=== PATIENT | female | born 1995 | race Two or more races ===

== ENCOUNTER 2019-01-11 04:21 | Emergency (ER) | payer BC, OTHER ==
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
[2019-01-11] MEDS: Levonorgestrel 1.5 MG Tab PO ONE (05:45)
== END 2019-01-11 05:52 | disposition home or self-care (01) ==
LOC: LB.ED 04:21 → LB.NPLAB 04:21 → LB.ED 04:21 → EEVIPCON 04:21 → LB.NPLAB 05:52 → LB.ED 05:52 → EDSTATUS 07:56
DX: T74.21XA Adult sexual abuse, confirmed, initial encounter (principal); S50.11XA Contusion of right forearm, initial encounter; S60.511A Abrasion of right hand, initial encounter; Y07.9 Unspecified perpetrator of maltreatment and neglect
CPT/HCPCS: 99284; A9270-GY

== ENCOUNTER 2021-07-30 03:57 | Emergency (ER) | payer BC, MEDICAID ==
[2021-07-30] MEDS ORDERED: Ketorolac 60 MG/2 ML SDV IM ONE (04:25)
--- NOTE | 2021-07-30 04:29 | EDM.PDOC ---
ED HPI GENERAL MEDICAL PROBLEM - General Chief Complaint: Abdominal Pain Stated Complaint: Left Pelvic pain Time Seen by Provider: 07/30/21 04:15 Source of Information: Reports: Patient History Limitations: Reports: No Limitations - History of Present Illness INITIAL COMMENTS - FREE TEXT/NARRATIVE: This patient presents to the ED for evaluation of left pelvic pain. She states t he pain began suddenly and woke her from sleep about an hour prior to arrival. Her LMP was "2 weeks ago" and was her first period since delivering her son via 5 months ago. She denies fever, abdominal pain, nausea, vomiting, or diarrhea. 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 - Related Data Allergies Allergy/AdvReac Type Severity Reaction Status Date / Time No Known Allergies Allergy Verified 07/30/21 04:45 Home Meds: Home Meds NK [No Known Home Meds] 07/30/21 [History] Past Medical History - Past Health History Medical/Surgical History: Denies Medical/Surgical History Social & Family History - Caffeine Use Caffeine Use: Reports: Soda ED ROS GENERAL - Review of Systems Review Of Systems: See Below Constitutional: Reports: No Symptoms HEENT: Reports: No Symptoms Respiratory: Reports: No Symptoms Cardiovascular: Reports: No Symptoms Endocrine: Reports: No Symptoms GI/Abdominal: Denies: Abdominal Pain, Diarrhea, Decreased Appetite, Nausea, Vomiting : Reports: Irregular Menses, Pain. Denies: Discharge, Dysuria, Flank Pain, Frequency, Hematuria, Incontinence, Urgency, Urinary Retention Skin: Reports: No Symptoms Neurological: Reports: No Symptoms ED EXAM, RENAL/ - Physical Exam Exam: See Below Exam Limited By: No Limitations General Appearance: Alert, No Apparent Distress Eye Exam: Bilateral Eye: Normal Inspection, PERRL Ears: Normal External Exam Nose: Normal Inspection Head: Atraumatic, Normocephalic Neck: Normal Inspection, Supple, Full Range of Motion Respiratory/Chest: No Respiratory Distress, Lungs Clear, Normal Breath Sounds (Female) Exam: Normal External Exam, Normal Speculum Exam, Adnexal Tenderness (left). No: Cervical Discharge, Cervical Fluid, Cervix Motion Tenderness, Vaginal Bleeding, Vaginal Discharge, Vaginal Lesions Rectal (Female) Exam: Normal Exam Extremities: Normal Inspection Neurological: Alert, Oriented Skin Exam: Warm, Dry Course - Orders/Labs/Meds Orders: Active Orders 24 hr Category Date Time Status Pelvis Non OB Comp [US] Stat Exams 07/30/21 10:45 Ordered CHLAMYDIA/GC AMPLIFICATION Stat Lab 07/30/21 05:37 Received CULTURE URINE [RM] Stat Lab 07/30/21 04:24 Received Labs: Laboratory Tests 07/30/21 07/30/21 07/30/21 Range/Units 04:24 04:24 04:45 WBC 13.6 H (4.0-11.0) K/uL RBC 4.27 (3.80-5.80) M/uL Hgb 12.0 (11.5-16.5) g/dL Hct 36.3 L (37.0-47.0) % MCV 85 (76-96) fL MCH 28.1 (27.0-32.0) pg MCHC 33.1 (31.0-35.0) g/dL RDW 14.0 (11.0-16.0) % Plt Count 240 (150-500) K/uL MPV 10.2 H (6.0-10.0) fL Neut % (Auto) 80.7 H (45.0-70.0) % Lymph % (Auto) 12.6 L (20.0-40.0) % [place] % (Auto) 5.9 (3.0-10.0) % Eos % (Auto) 0.6 L (1.0-5.0) % Baso % (Auto) 0.2 (0.0-0.5) % Neut # (Auto) 10.99 H (2.00-7.50) K/uL Lymph # (Auto) 1.71 (1.50-4.00) K/uL [place] # (Auto) 0.80 (0.20-0.80) K/uL Eos # (Auto) 0.08 (0.04-0.40) K/uL Baso # (Auto) 0.03 (0.02-0.10) K/uL Sodium (136-145) mmol/L Potassium (3.5-5.1) mmol/L Chloride (98-107) mmol/L Carbon Dioxide (21.0-32.0) mmol/L Anion Gap (5.0-15.0) mmol/L BUN (8-26) mg/dL Creatinine (0.55-1.02) mg/dL Est Cr Clr Drug Dosing Estimated GFR (MDRD) (>60) MLS/MIN BUN/Creatinine Ratio (6-25) Glucose (74-100) mg/dL Calcium (8.5-10.1) mg/dL Urine Color Yellow Urine Appearance Clear (CLEAR) Urine pH 5.5 (5.0-8.0) Ur Specific [place] >= 1.030 (1.003-1.030) Urine Protein Negative (NEGATIVE) mg/dL Urine Glucose (UA) Negative (NEGATIVE) mg/dL Urine Ketones Negative (NEGATIVE) mg/dL Urine Occult Blood Small H (NEGATIVE) Urine Nitrite Negative (NEGATIVE) Urine Bilirubin Negative (NEGATIVE) Urine Urobilinogen 0.2 (0.2-1.0) E.U./dL Ur Leukocyte Esterase Small H (NEGATIVE) Urine RBC 0-5 H /HPF Urine WBC 5-10 H /HPF Ur Squamous Epith Cells Moderate /HPF Urine Bacteria Occasional /HPF Urine HCG, Qual Negative (NEGATIVE) 07/30/21 Range/Units 04:45 WBC (4.0-11.0) K/uL RBC (3.80-5.80) M/uL Hgb (11.5-16.5) g/dL Hct (37.0-47.0) % MCV (76-96) fL MCH (27.0-32.0) pg MCHC (31.0-35.0) g/dL RDW (11.0-16.0) % Plt Count (150-500) K/uL MPV (6.0-10.0) fL Neut % (Auto) (45.0-70.0) % Lymph % (Auto) (20.0-40.0) % [place] % (Auto) (3.0-10.0) % Eos % (Auto) (1.0-5.0) % Baso % (Auto) (0.0-0.5) % Neut # (Auto) (2.00-7.50) K/uL Lymph # (Auto) (1.50-4.00) K/uL [place] # (Auto) (0.20-0.80) K/uL Eos # (Auto) (0.04-0.40) K/uL Baso # (Auto) (0.02-0.10) K/uL Sodium 139 (136-145) mmol/L Potassium 4.1 (3.5-5.1) mmol/L Chloride 108 H (98-107) mmol/L Carbon Dioxide 27.9 (21.0-32.0) mmol/L Anion Gap 7.2 (5.0-15.0) mmol/L BUN 10 (8-26) mg/dL Creatinine 0.64 (0.55-1.02) mg/dL Est Cr Clr Drug Dosing TNP Estimated GFR (MDRD) > 60 (>60) MLS/MIN BUN/Creatinine Ratio 15.6 (6-25) Glucose 99 (74-100) mg/dL Calcium 8.6 (8.5-10.1) mg/dL Urine Color Urine Appearance (CLEAR) Urine pH (5.0-8.0) Ur Specific [place] (1.003-1.030) Urine Protein (NEGATIVE) mg/dL Urine Glucose (UA) (NEGATIVE) mg/dL Urine Ketones (NEGATIVE) mg/dL Urine Occult Blood (NEGATIVE) Urine Nitrite (NEGATIVE) Urine Bilirubin (NEGATIVE) Urine Urobilinogen (0.2-1.0) E.U./dL Ur Leukocyte Esterase (NEGATIVE) Urine RBC /HPF Urine WBC /HPF Ur Squamous Epith Cells /HPF Urine Bacteria /HPF Urine HCG, Qual (NEGATIVE) Meds: Medications Discontinued Medications Generic Name Dose Route Start Last Admin Trade Name Freq PRN Reason Stop Dose Admin Ketorolac Tromethamine 60 mg 07/30/21 04:25 07/30/21 04:25 Ketorolac 60 Mg/2 Ml Sdv IM 07/30/21 04:26 60 mg ONETIME ONE Administration - Re-Assessments/Exams Free Text/Narrative Re-Assessment/Exam: 07/30/21 10:43 This patient presents with pelvic pain. They look overall well. A broad differential diagnosis was considered including colitis, appendicitis, intestinal cramping, pyelonephritis, UTI, kidney stone, constipation, diverticulitis, volvulus, ileus, obstruction, (ectopic or intrauterine), ovarian cyst (enlarged or ruptured), ovarian torsion, PID, etc as possibilities. The workup in the ED did not identify a specific source of pain. Cultures were sent. Doubt PID or TOA given clear findings of cyst without signs of abscess. No other etiology for the patients pain is found at this point and my suspicion of an intraabdominal catastrophe or other worrisome etiology is very low. I will not therefore admit for serial exams and further workup. Patient is hemodynamically stable in the ED. She will be scheduled for an outpatient US later today. Return for fevers greater than 102, increasing pain, other new symptoms develop. Abdominal pain handout given. Questions were answered. Departure - Departure Time of Disposition: 05:30 Disposition: Home, Self-Care 01 Condition: Good Clinical Impression: Pelvic pain - Discharge Information *PRESCRIPTION DRUG MONITORING PROGRAM REVIEWED*: Not Applicable *COPY OF PRESCRIPTION DRUG MONITORING REPORT IN PATIENT DEBRA: Not Applicable Instructions: Pelvic Pain, Female, [id number] Forms: ED Department Discharge, ED Return to Work/School Form Additional Instructions: May continue to treat pain with Tylenol 1-2 tabs every 4-6 hours. Apply warm heat to abd for pain. Tomorrow you will be called by facility after scheduled for US of abd. Return to ER if increased pain - My Orders Last 24 Hours: My Active Orders 07/30/21 04:24 CULTURE URINE [RM] Stat 07/30/21 05:37 CHLAMYDIA/GC AMPLIFICATION Stat 07/30/21 10:45 Pelvis Non OB Comp [US] Stat - Assessment/Plan Last 24 Hours: My Active Orders 07/30/21 04:24 CULTURE URINE [RM] Stat 07/30/21 05:37 CHLAMYDIA/GC AMPLIFICATION Stat 07/30/21 10:45 Pelvis Non OB Comp [US] Stat
--- NOTE | 2021-07-30 15:29 | US ---
DATE OF SERVICE: 07/30/21 CLINICAL DATA: PELVIC PAIN PELVIC ULTRASOUND: Uterus measures 8.6 x 4.1 x 6.6 cm. It is normal in echogenicity. The endometrium measures 8 mm in thickness. The right ovary measures 2.6 x 1.4 x 2.3 cm. The left ovary measures 2.6 x 2.1 x 2.3 cm. There are small cysts in both ovaries. No solid adnexal masses. There is a small amount of free fluid noted in the cul-de-sac. [id number] [facility]
[2021-08-02 01:08] LABS: CHLAMYDIA TRACHOMATIS, NAA Negative (Negative); NEISSERIA GONORRHOEAE, NAA Negative (Negative)
== END 2021-07-30 05:35 | disposition home or self-care (01) ==
LOC: LB.ED 03:57
DX: R10.2 Pelvic and perineal pain (principal)
CPT/HCPCS: 36415; 76830; 76856; 80048; 81001; 81025; 85025; 87086; 87491; 87591; 96372; 99284; J1885; 99283